=== PATIENT | female | born 1965 | race Caucasian/White ===

== ENCOUNTER 2016-07-23 17:06 | Emergency (ER) | payer BC, MEDICAID ==
[~2016-07-23] VITALS: Ht 167.6 cm; Wt 83.5 kg
--- NOTE | 2016-07-23 17:11 | NUR ---
PT LOWER ABD PAIN AND URINARY URGENCY X 7 DAYS. VSS. GOWNED PT . AWAITING MD ORDER
--- NOTE | 2016-07-23 17:50 | NUR ---
DANIELA EMBEDDED NURSE AT BEDSIDE FOR EVAL
--- NOTE | 2016-07-23 17:58 | NUR ---
URINE SAMPLE COLLECTED SENT TO LAB
[2016-07-23 18:10] LABS: APPEARANCE,URINE CLEAR (CLEAR); BILIRUBIN,URINE NEGATIVE (NEGATIVE); BLOOD, URINE NEGATIVE Ery/uL (NEGATIVE); COLOR,URINE YELLOW (YELLOW); KETONES,URINE NEGATIVE (NEGATIVE); LEUKOCYTE ESTERASE ,URINE TRACE (NEGATIVE); NITRITE, URINE NEGATIVE (NEGATIVE); PROTEIN,URINE NEGATIVE (NEGATIVE); UGLUCOSE NEGATIVE (NEGATIVE); UROBILINOGEN,URINE 0.2 EU/dL (0.2)
[2016-07-23 18:15] LABS: BACTERIA,URINE Rare /HPF (None Seen); RBC,URINE 0-2 /HPF (0-2); SQUAMOUS EPITHELIAL CELL,UR Rare /HPF (None Seen)
--- NOTE | 2016-07-23 18:22 | NUR ---
Patient discharged to home in stable condition. Written and verbal after care instructions given. Patient verbalizes understanding of instruction.
[2016-07-23 18:23] VITALS: BP 145/90
== END 2016-07-23 18:24 | disposition home or self-care (01) ==
LOC: ER 17:07
DX: N39.0 Urinary tract infection, site not specified (principal)
CPT/HCPCS: 81001; 99283; A4606; Z7610; 81000-TC

== ENCOUNTER 2016-07-28 22:34 | Emergency (ER) | payer MEDICAID ==
[~2016-07-28] VITALS: Ht 167.6 cm; Wt 83.5 kg
--- NOTE | 2016-07-28 22:50 | NUR ---
TO BED 9 A 50 YO FEMALE BISELF AND PT STATES SHE WAS HERE ON SUNDAY FOR UTI SYMTPOMS AND THEY HAVE NOT STOPPED, "BEEN TAKING MEDICATIONS, NOT HELPING." VSS. AFEBRILE. NO S/S OF ACUTE DISTRESS. INITIATED COMFORT MEASURES. AWAITING FOR ER MD COONEY.
[2016-07-28 23:24] LABS: APPEARANCE,URINE CLEAR (CLEAR); BILIRUBIN,URINE NEGATIVE (NEGATIVE); BLOOD, URINE TRACE Ery/uL (NEGATIVE); COLOR,URINE ORANGE (YELLOW); KETONES,URINE NEGATIVE (NEGATIVE); LEUKOCYTE ESTERASE ,URINE 1+ (NEGATIVE); NITRITE, URINE POSITIVE (NEGATIVE); PH,URINE 5.5 (5.0-8.0); PROTEIN,URINE 1+ mg/dl (NEGATIVE); UGLUCOSE TRACE mg/dL (NEGATIVE)
[2016-07-28 23:36] LABS: RBC,URINE 0-2 /HPF (0-2)
[2016-07-28 23:37] LABS: BACTERIA,URINE 1+ /HPF (None Seen); SQUAMOUS EPITHELIAL CELL,UR Few /HPF (None Seen)
--- NOTE | 2016-07-28 23:43 | NUR ---
DR MELGAR AT BEDSIDE.
[2016-07-28] MEDS ORDERED: CIPROFLOXACIN HCL 500 MG TABLET ONE (23:44)
[2016-07-28 23:55] VITALS: BP 133/86
--- NOTE | 2016-07-28 23:55 | NUR ---
DPatient discharged to home in stable condition. Written and verbal after care instructions given. Patient verbalizes understanding of instruction. Patient is ambulatory with steady gait, accompanied by . No further complaints.
[2016-07-29] MEDS ORDERED: CIPROFLOXACIN HCL 500 MG TABLET PO ONE
== END 2016-07-28 23:56 | disposition home or self-care (01) ==
LOC: ER 22:34
DX: N39.0 Urinary tract infection, site not specified (principal)
CPT/HCPCS: 81001; 87086; 99284; A4606; Z7610; 81000-TC

== ENCOUNTER 2016-07-30 19:26 | Emergency (ER) | payer MEDICAID ==
[~2016-07-30] VITALS: Ht 165.1 cm; Wt 81.6 kg
--- NOTE | 2016-07-30 20:18 | NUR ---
BIB SELF, CC: LOWER ABDOMINAL PAIN X 1.5 WEEKS, ON CIPRO FOR UTI SINCE SUNDAY. PT AOX4 RR EVEN AND UNLABORED. NO SOB NOTED. NAD NOTED. NO NVD AT THIS TIME. PT NOT DIAPHORETIC. PT WAITING FOR MD COONEY.
--- NOTE | 2016-07-30 20:41 | NUR ---
PAC NUSHA AT BEDSIDE FOR EVAL.
--- NOTE | 2016-07-30 20:46 | NUR ---
CALLED RADIOLOGY FOR PELVIC US
[2016-07-30 21:14] LABS: APPEARANCE,URINE Clear (CLEAR); BILIRUBIN,URINE Negative (NEGATIVE); BLOOD, URINE Small Ery/uL (NEGATIVE); COLOR,URINE Yellow (YELLOW); KETONES,URINE Negative (NEGATIVE); LEUKOCYTE ESTERASE ,URINE Small (NEGATIVE); NITRITE, URINE Negative (NEGATIVE); PH,URINE 5.5 (5.0-8.0); PROTEIN,URINE Negative (NEGATIVE); UGLUCOSE Negative (NEGATIVE); UROBILINOGEN,URINE 0.2 EU/dL (0.2)
[2016-07-30 21:34] LABS: BACTERIA,URINE Rare /HPF (None Seen); SQUAMOUS EPITHELIAL CELL,UR Few /HPF (None Seen)
--- NOTE | 2016-07-30 21:51 | NUR ---
MADIHA AT BEDSIDE
[2016-07-30] MEDS ORDERED: MEROPENEM 500 MG VIAL IV ONE (21:58)
[2016-07-30] MEDS ORDERED: IV PREMIX 0.45% NS + KCL 1,000 ML IV ONE (21:59)
--- NOTE | 2016-07-30 23:13 | NUR ---
Patient discharged to home in stable condition. Written and verbal after care instructions given. Patient verbalizes understanding of instruction. NAD NOTED UPON DISCHARGE
[2016-07-30 23:14] VITALS: BP 126/91
== END 2016-07-30 23:14 | disposition home or self-care (01) ==
LOC: ER 19:28
DX: N39.0 Urinary tract infection, site not specified (principal)
CPT/HCPCS: 76856; 81001; 87086 ×2; 99285; A4606; Z7610; 81000-TC; J2185

== ENCOUNTER 2017-03-11 09:25 | Emergency (ER) | payer MEDICAID ==
[~2017-03-11] VITALS: Ht 167.6 cm; Wt 83.9 kg
[2017-03-11 09:34] VITALS: BP 111/68
[2017-03-11] MEDS ORDERED: TETRACAINE HCL/PF 0.5% UD 2 ML BOTTLE ONE (09:55)
[2017-03-11] MEDS ORDERED: TETRACAINE HCL/PF 0.5% UD 2 ML BOTTLE LEFTEYE ONE (10:00)
== END 2017-03-11 10:11 | disposition home or self-care (01) ==
LOC: ER 09:28
DX: H11.30 Conjunctival hemorrhage, unspecified eye (principal); E03.9 Hypothyroidism, unspecified
CPT/HCPCS: 99282; A4606; Z7610

== ENCOUNTER 2020-02-18 11:50 | Emergency (ER) | payer MEDICAID ==
[~2020-02-18] VITALS: Ht 167.6 cm; Wt 83.9 kg
--- NOTE | 2020-02-18 12:08 | NUR ---
ON & OFF LEFT SIDED STABBING CHEST PAIN SINCE YESTERDAY. PATIENT A/OX4, BREATHING EVEN AND UNLABORED, NO SOB NOTED, NEEDS ATTENDED, KEPT COMFORTABLE.
[2020-02-18 12:43] LABS: BASOPHILS # (AUTO) 0.1 /CMM (0.0-0.2); BASOPHILS % (AUTO) 0.8 % (0.0-2.0); EOSINOPHILS % (AUTO) 1.1 % (0.0-6.0); HEMATOCRIT 42 % (33-45); HEMOGLOBIN 13.5 g/dL (11.5-14.8); LYMPHOCYTES # (AUTO) 2.6 /CMM (0.8-4.8); LYMPHOCYTES % (AUTO) 32.5 % (20.0-44.0); MEAN CORPUSCULAR HGB CONC 32 g/dl (31.0-36.0); MEAN CORPUSCULAR VOLUME 86 fL (82-100); MONOCYTES # (AUTO) 0.4 /CMM (0.1-1.30); MONOCYTES % (AUTO) 5.4 % (2.0-12.0); NEUTROPHILS # (AUTO) 4.9 /CMM (1.8-8.9); NEUTROPHILS % (AUTO) 60.2 % (43.0-81.0); PLATELET COUNT (AUTO) 364 /CMM (150-450); RED BLOOD CELL COUNT(AUTO) 4.86 MIL/uL (4.0-5.2); WHITE BLOOD COUNT (AUTO) 8.1 K/uL (4.3-11.0)
[2020-02-18 12:45] LABS: CALCIUM, SERUM 9.6 mg/dL (8.5-10.1); CARBON DIOXIDE 30 mmol/L (21-32); CHLORIDE 104 mmol/L (98-107); CREATININE 0.8 mg/dL (0.6-1.3); GLUCOSE 94 mg/dL (74-106); POTASSIUM 4.5 mmol/L (3.5-5.1); SODIUM SERUM 141 mmol/L (136-145); UREA NITROGEN, BLOOD 18 mg/dL (7-18)
[2020-02-18 12:58] LABS: ALANINE AMINOTRANSFERASE 16 U/L (12-78); ALBUMIN 3.4 g/dL (3.4-5.0); ALKALINE PHOSPHATASE 112 U/L (46-116); ASPARTATE AMINOTRANSFERASE 13 U/L (15-37); B-TYPE NATRIURETIC PEPTIDE 134 PG/ML (0-125); BILIRUBIN,DIRECT 0.1 mg/dL (0.0-0.2); BILIRUBIN,TOTAL 0.3 mg/dL (0.2-1.0); TOTAL PROTEIN, SERUM 7.5 g/dL (6.4-8.2)
[2020-02-18 13:13] LABS: D-DIMER 0.36 mg/L(FEU (0.17-0.50)
[2020-02-18 16:44] VITALS: BP 132/97
[2020-02-18] MEDS: IBUPROFEN 600 MG TABLET PO ONE (16:44)
--- NOTE | 2020-02-18 16:44 | NUR ---
Patient discharged to home in stable condition. Written and verbal after care instructions given. Patient verbalizes understanding of instruction.
== END 2020-02-18 16:45 | disposition home or self-care (01) ==
LOC: ER 11:53
DX: R07.89 Other chest pain (principal); I10 Essential (primary) hypertension; M25.50 Pain in unspecified joint; E03.9 Hypothyroidism, unspecified
CPT/HCPCS: 36415; 71045-TC; 80048-TC; 80076-TC; 83880; 84484-TC; 85025-TC; 85378-TC; 85730-TC